=== PATIENT | male | born 1995 | race Hispanic/Latino ===

== ENCOUNTER 2021-09-04 03:47 | Emergency (ER) | payer SELFPAY ==
--- OUTSIDE RECORDS SUMMARY | 2021-09-04 03:50 | XMS REPORT | Continuity of Care Document ---
:1995 Author Organization [facility] t Address [address] [place] [address] Care Team Providers Name Role Phone JOSE MARTINO Attending Clinician Unavailable JOSE MARTINO Admitting Clinician Unavailable Problems This patient has no known problems. Allergies, Adverse Reactions, Alerts This patient has no known allergies or adverse reactions. Medications This patient has no known medications. Procedures This patient has no known procedures. Results Test Description Test Time Test Comments Results Result Comments Source BLOOD CULTURE 2016-12-06 00:00:00 Test Item Value Reference Range Interpretation Comme nts CULTURE (BEAKER) (test code = 1095) No growth in 5 days CBC W/PLT COUNT & AUTO [id number] 11:26:00 Test Item Value Reference Range Interpretation Comments WHITE BLOOD CELL COUNT (BEAKER) 9.4 K/ L 4.0-10.0 (test code = 775) RED BLOOD CELL COUNT (BEAKER) 5.10 M/ L 4.20-5.80 (test code = 761) HEMOGLOBIN (BEAKER) (test code = 15.5 GM/DL 13.0-16.8 410) HEMATOCRIT (BEAKER) (test code = 45.4 % 40.0-50.0 411) MEAN CORPUSCULAR VOLUME (BEAKER) 89.0 fL 82.0-98.0 (test code = 753) MEAN CORPUSCULAR HEMOGLOBIN 30.3 pg 27.0-33.0 (BEAKER) (test code = 751) MEAN CORPUSCULAR HEMOGLOBIN CONC 34.1 GM/DL 32.0-36.0 (BEAKER) (test code = 752) RED CELL DISTRIBUTION WIDTH 12.7 % 10.3-14.2 (BEAKER) (test code = 412) PLATELET COUNT (BEAKER) (test 197 K/CU MM 150-430 code = 756) MEAN PLATELET VOLUME (BEAKER) 8.6 fL 6.5-10.5 (test code = 754) NUCLEATED RED BLOOD CELLS 0 /100 WBC 0-0 (BEAKER) (test code = 413) NEUTROPHILS RELATIVE PERCENT 64 % (BEAKER) (test code = 429) LYMPHOCYTES RELATIVE PERCENT 23 % (BEAKER) (test code = 430) MONOCYTES RELATIVE PERCENT 10 % (BEAKER) (test code = 431) EOSINOPHILS RELATIVE PERCENT 2 % (BEAKER) (test code = 432) BASOPHILS RELATIVE PERCENT 1 % (BEAKER) (test code = 437) NEUTROPHILS ABSOLUTE COUNT 5.98 K/ L 1.80-8.00 (BEAKER) (test code = 670) LYMPHOCYTES ABSOLUTE COUNT 2.19 K/ L 1.48-4.50 (BEAKER) (test code = 414) MONOCYTES ABSOLUTE COUNT (BEAKER) 0.98 K/ L 0.00-1.30 (test code = 415) EOSINOPHILS ABSOLUTE COUNT 0.18 K/ L 0.00-0.50 (BEAKER) (test code = 416) BASOPHILS ABSOLUTE COUNT (BEAKER) 0.06 K/ L 0.00-0.20 (test code = 417) 0.000.800.000.000.000.00(MANUAL DIFFERENTIAL)2016-12-01 11:26:00 Test Item Value Reference Range Interpretation Comments TOTAL COUNTED (BEAKER) (test code = 1351) PLT MORPHOLOGY (BEAKER) (test code = Normal 486) RBC MORPHOLOGY (BEAKER) (test code = Normal 762) ATYPICAL LYMPHS(BEAKER) (test code = Present 1678) [id number] 06:25:00 Test Item Value Reference Range Interpretation Comments PHOSPHORUS (BEAKER) (test code = 3.3 mg/dL 2.3-4.7 604) [id number] 06:25:00 Test Item Value Reference Range Interpretation Comments MAGNESIUM (BEAKER) (test code = 1.9 mg/dL 1.6-2.6 627) COMPREHENSIVE METABOLIC [id number] 06:25:00 Test Item Value Reference Range Interpretation Comments TOTAL PROTEIN 7.5 gm/dL 6.0-8.3 (BEAKER) (test code = 770) ALBUMIN (BEAKER) 3.8 g/dL 3.5-5.0 (test code = 1145) ALKALINE PHOSPHATASE 104 U/L 40-150 (BEAKER) (test code = 346) BILIRUBIN TOTAL 0.7 mg/dL 0.2-1.2 (BEAKER) (test code = 377) SODIUM (BEAKER) (test 139 meq/L 136-145 code = 381) POTASSIUM (BEAKER) 3.9 meq/L 3.5-5.1 (test code = 379) CHLORIDE (BEAKER) 106 meq/L 98-107 (test code = 382) CO2 (BEAKER) (test 21 meq/L 22-29 L code = 355) BLOOD UREA NITROGEN 8 mg/dL 7-21 (BEAKER) (test code = 354) CREATININE (BEAKER) 0.72 mg/dL 0.57-1.25 (test code = 358) GLUCOSE RANDOM 76 mg/dL 70-105 (BEAKER) (test code = 652) CALCIUM (BEAKER) 9.3 mg/dL 8.4-10.2 (test code = 697) AST (SGOT) (BEAKER) 16 U/L 5-34 (test code = 353) ALT (SGPT) (BEAKER) 32 U/L 6-55 (test code = 347) EGFR (BEAKER) (test 137 ESTIMATE D GFR IS code = 1092) mL/min/1.73 sq NOT ACCURA TE m CREATININE CLEARANCE IN PREDICTING GLOMERULAR FILTRATION RATE . ESTIMATED GFR I S NOT APPLICABLE FOR DIALYSIS PATIEN TS. URINALYSIS W/ [id number] 19:58:00 Test Item Value Reference Range Interpretation Comments COLOR (BEAKER) (test code Light Yellow = 470) CLARITY (BEAKER) (test Clear code = 469) SPECIFIC GRAVITY UA 1.015 1.001-1.035 (BEAKER) (test code = 468) PH UA (BEAKER) (test code 7.5 5.0-8.0 = 467) PROTEIN UA (BEAKER) (test Negative Negative code = 464) GLUCOSE UA (BEAKER) (test Negative Negative code = 365) KETONES UA (BEAKER) (test Negative Negative code = 371) BILIRUBIN UA (BEAKER) Negative Negative (test code = 462) BLOOD UA (BEAKER) (test Negative Negative code = 461) NITRITE UA (BEAKER) (test Negative Negative code = 465) LEUKOCYTE ESTERASE UA Negative Negative (BEAKER) (test code = 466) UROBILINOGEN UA (BEAKER) 0.2 mg/dL 0.2-1.0 (test code = 463) RBC UA (BEAKER) (test code < /HPF = 519) WBC UA (BEAKER) (test code 1 /HPF = 520) MUCUS (BEAKER) (test code Rare = 1574) SOURCE(BEAKER) (test code Urine, Clean Catch = 2795)
--- NOTE | 2021-09-04 04:33 | ER ---
Nurse's Notes [facility] Name: Saul Gonsalez Jr Age: 25 yrs Sex: Male : 1995 Arrival Date: 09/04/2021 Time: 03:52 Bed 14 Private MD: Diagnosis: Functional dyspepsia;Chest pain, unspecified Presentation: 09/04 04:17 Chief complaint: Patient states: he ate a late dinner last night watched a movie and bb lay down then started having chest pain denies nausea, SOB. Coronavirus screen: At this time, the client does not indicate any symptoms associated with coronavirus-19. Ebola Screen: No symptoms or risks identified at this time. Initial Sepsis Screen: Does the patient meet any 2 criteria? No. Patient's initial sepsis screen is negative. Does the patient have a suspected source of infection? No. Patient's initial sepsis screen is negative. Risk Assessment: Do you want to hurt yourself or someone else? Patient reports no desire to harm self or others. Onset of symptoms was September 03, 2021. 04:17 Method Of Arrival: Ambulatory bb 04:17 Acuity: KIN 3 bb Triage Assessment: 04:29 General: Appears distressed. Pain: Complains of pain in chest and abdomen. sv1 Cardiovascular: No deficits noted. Historical: - Allergies: 04:19 No Known Allergies; bb - Home Meds: 04:19 None [Active]; bb - PMHx: 04:19 None; bb - PSHx: 04:19 None; bb - Immunization history:: Adult Immunizations up to date, Client reports having NOT received the Covid vaccine. - Social history:: Smoking status: Patient reports the use of cigarette tobacco products, smokes one-half pack cigarettes per day, Patient/guardian denies using alcohol, street drugs. - Family history:: not pertinent. Screenin:32 Abuse screen: none. Nutritional screening: No deficits noted. Tuberculosis screening: sv1 No symptoms or risk factors identified. Fall Risk None identified. Assessment: 04:32 Pain: Pain does not radiate. Pain began suddenly. sv1 04:54 General: Cleared for discharge to home by the provider. The patient understands his sv1 discharge and medication instructions. Dc' via ambulatory.. Vital Signs: 04:17 BP 116 / 71; Pulse 71; Resp 16 S; Temp 98.7(O); Pulse Ox 97% on R/A; Weight 99.79 kg bb (R); Height 5 ft. 6 in. (167.64 cm); Pain 8/10; 04:29 BP 116 / 60; Pulse 94; Resp 17; Temp 98.8; Pulse Ox 97% 0 lpm ; Weight 99.79 kg; Height sv1 5 ft. 6 in. (167.64 cm); 04:29 Body Mass Index 35.51 (99.79 kg, 167.64 cm) sv1 ED Course: 03:52 Patient arrived in ED. 04:14 Olman Lara MD is Attending Physician. viridiana 04:19 Triage completed. bb 04:19 Arm band placed on Patient placed in an exam room, on a stretcher, on pulse oximetry. bb EKG completed in triage. Results shown to MD. 04:21 Jack Mc, RUSSELL is Primary Nurse. sv1 04:32 Mahendra Martinez MD is Referral Physician. viridiana 04:32 Patient has correct armband on for positive identification. Side rails up X 1. Pulse ox sv1 on. 04:32 No provider procedures requiring assistance completed. Patient maintains SpO2 sv1 saturation greater than 95% on room air. 04:33 Chest Single View XRAY In Process Unspecified. EDMS Administered Medications: 04:34 CANCELLED (Other Intervention Used): ProTONIX (pantoprazole) 40 mg IVP once bb 04:43 Drug: GI Cocktail without - (Maalox Suspension 30 ml, Lidocaine Liquid 2 % 15 bb ml) Route: PO; 04:46 Follow up: Response: No adverse reaction; Pain is decreased sv1 04:43 Drug: ProTONIX (pantoprazole) 40 mg Route: PO; bb 04:45 Follow up: Response: No adverse reaction sv1 Outcome: 04:33 Discharge ordered by . viridiana 04:53 Discharged to home sv1 04:53 Condition: improved 04:53 Discharge instructions given to patient, family, Demonstrated understanding of instructions. 04:56 Patient left the ED. sv1 Signatures: Dispatcher [employer] EDMS Olman Lara MD MD cha Ballard, Brenda, RN RN Briana Coombs Villicano, Jack, RN RN sv1
--- NOTE | 2021-09-04 04:34 | EDPHYS ---
Physician Documentation [facility] Name: Saul Gonsalez Jr Age: 25 yrs Sex: Male : 1995 Arrival Date: 09/04/2021 Time: 03:52 Bed 14 Private MD: ED Physician Olman Lara HPI: 09/04 04:28 This 25 yrs old Male presents to ER via Ambulatory with complaints of Chest viridiana Pain > 30 y/o. 04:28 The patient or guardian reports chest pain that is located primarily in the substernal viridiana area. The pain does not radiate. Associated signs and symptoms: Pertinent positives: gerd. The chest pain is described as burning. Severity of pain: At its worst the pain was mild in the emergency department the pain is unchanged. The patient has not experienced similar symptoms in the past. Historical: - Allergies: 04:19 No Known Allergies; bb - Home Meds: 04:19 None [Active]; bb - PMHx: 04:19 None; bb - PSHx: 04:19 None; bb - Immunization history:: Adult Immunizations up to date, Client reports having NOT received the Covid vaccine. - Social history:: Smoking status: Patient reports the use of cigarette tobacco products, smokes one-half pack cigarettes per day, Patient/guardian denies using alcohol, street drugs. - Family history:: not pertinent. ROS: 04:28 Constitutional: Negative for fever, chills, and weight loss, Eyes: Negative for injury, viridiana pain, redness, and discharge, ENT: Negative for injury, pain, and discharge, Neck: Negative for injury, pain, and swelling, Respiratory: Negative for shortness of breath, cough, wheezing, and pleuritic chest pain. 04:28 Back: Negative for injury and pain, : Negative for injury, bleeding, discharge, and swelling, MS/Extremity: Negative for injury and deformity, Skin: Negative for injury, rash, and discoloration, Neuro: Negative for headache, weakness, numbness, tingling, and seizure. 04:28 Cardiovascular: Positive for chest pain, Negative for edema, orthopnea, palpitations. 04:28 Abdomen/GI: Negative for abdominal pain. Exam: 04:28 Constitutional: This is a well developed, well nourished patient who is awake, alert, viridiana and in no acute distress. Head/Face: Normocephalic, atraumatic. Eyes: Pupils equal round and reactive to light, extra-ocular motions intact. Lids and lashes normal. Conjunctiva and sclera are non-icteric and not injected. Cornea within normal limits. Periorbital areas with no swelling, redness, or edema. ENT: Nares patent. No nasal discharge, no septal abnormalities noted. Tympanic membranes are normal and external auditory canals are clear. Oropharynx with no redness, swelling, or masses, exudates, or evidence of obstruction, uvula midline. Mucous membranes moist. Neck: Trachea midline, no thyromegaly or masses palpated, and no cervical lymphadenopathy. Supple, full range of motion without nuchal rigidity, or vertebral point tenderness. No Meningismus. Chest/axilla: Normal chest wall appearance and motion. Nontender with no deformity. No lesions are appreciated. Cardiovascular: Regular rate and rhythm with a normal S1 and S2. No gallops, murmurs, or rubs. Normal PMI, no JVD. No pulse deficits. Respiratory: Lungs have equal breath sounds bilaterally, clear to auscultation and percussion. No rales, rhonchi or wheezes noted. No increased work of breathing, no retractions or nasal flaring. Abdomen/GI: Soft, non-tender, with normal bowel sounds. No distension or tympany. No guarding or rebound. No evidence of tenderness throughout. Back: No spinal tenderness. No costovertebral tenderness. Full range of motion. Male : Normal genitalia with no discharge or lesions. Skin: Warm, dry with normal turgor. Normal color with no rashes, no lesions, and no evidence of cellulitis. MS/ Extremity: Pulses equal, no cyanosis. Neurovascular intact. Full, normal range of motion. Neuro: Awake and alert, GCS 15, oriented to person, place, time, and situation. Cranial nerves II-XII grossly intact. Motor strength 5/5 in all extremities. Sensory grossly intact. Cerebellar exam normal. Normal gait. Psych: Awake, alert, with orientation to person, place and time. Behavior, mood, and affect are within normal limits. 04:28 ECG was reviewed by the Attending Physician. Vital Signs: 04:17 BP 116 / 71; Pulse 71; Resp 16 S; Temp 98.7(O); Pulse Ox 97% on R/A; Weight 99.79 kg bb (R); Height 5 ft. 6 in. (167.64 cm); Pain 8/10; 04:29 BP 116 / 60; Pulse 94; Resp 17; Temp 98.8; Pulse Ox 97% 0 lpm ; Weight 99.79 kg; Height sv1 5 ft. 6 in. (167.64 cm); 04:29 Body Mass Index 35.51 (99.79 kg, 167.64 cm) sv1 MDM: 04:14 Patient medically screened. viridiana 04:31 Differential diagnosis: abnormal EKG, coronary artery disease chest wall pain, viridiana Cholelithiasis costochondritis, esophagitis, gastritis, hiatal hernia, pleurisy, stable angina. HEART Score: History: Slightly Suspicious (0), ECG: Normal (0), Age: < or = 45 years (0), Risk Factors: No Risk Factors Known (0), Total Score = 0. The patient's deep vein thrombosis risk score was calculated as follows: Total Score: 0. This patient was found to be at low risk for a deep vein thrombosis by using the Well's assessment criteria. The patient's pulmonary embolism risk score was calculated as follows: Total Score: 0-2 points. This patient was found to be at low risk for a pulmonary embolism by using the Well's assessment criteria. KAREY Risk Score: TOTAL SCORE = 0. Data reviewed: vital signs, nurses notes, EKG, radiologic studies, plain films. Data interpreted: hall monitor: rate is 71 beats/min, rhythm is regular, Arterial blood gas: is normal except: 97. Test interpretation: by ED physician or midlevel provider: ECG, plain radiologic studies. 09/04 04:22 Order name: Chest Single View XRAY [facility] 09/04 04:22 Order name: EKG; Complete Time: 04:23 [facility] 09/04 04:22 Order name: EKG - Nurse/Tech; Complete Time: :35 [facility] EC:28 Rate is 95 beats/min. Rhythm is regular. QRS [place] is Normal. [place] interval is normal. QRS [place] interval is normal. QT interval is normal. No Q waves. T waves are Normal. No ST changes noted. Clinical impression: Normal ECG and No evidence of ischemia. Interpreted by me. Reviewed by me. Administered Medications: 04:34 CANCELLED (Other Intervention Used): ProTONIX (pantoprazole) 40 mg IVP once bb 04:43 Drug: GI Cocktail without - (Maalox Suspension 30 ml, Lidocaine Liquid 2 % 15 bb ml) Route: PO; 04:46 Follow up: Response: No adverse reaction; Pain is decreased sv1 04:43 Drug: ProTONIX (pantoprazole) 40 mg Route: PO; bb 04:45 Follow up: Response: No adverse reaction sv1 Disposition Summary: 09/04/21 04:33 Discharge Ordered Location: Home [facility] Problem: new [facility] Symptoms: have improved viridiana Condition: Stable viridiana Diagnosis - Functional dyspepsia viridiana - Chest pain, unspecified viridiana Followup: viridiana - With: Private Physician - When: 2 - 3 days - Reason: Recheck today's complaints, Continuance of care, Re-evaluation by your physician Followup: viridiana - With: Mahendra Martinez MD - When: 2 - 3 days - Reason: Recheck today's complaints, Re-evaluation by your physician Discharge Instructions: - Discharge Summary Sheet viridiana - Nonspecific Chest Pain, Adult viridiana - Indigestion viridiana - Nonspecific Chest Pain, Adult, [id number] viridiana - Indigestion, [id number] [facility] Forms: - Medication Reconciliation Form [facility] - Thank You Letter [facility] - Antibiotic Education [facility] - Prescription Opioid Use [facility] Prescriptions: - ondansetron 4 mg Oral tablet,disintegrating - place 1 tablet by TRANSLINGUAL route every 6-8 hours; 20 tablet; Refills: 0, [facility] Product Selection Permitted - Protonix 40 mg Oral Tablet - take 1 tablet by ORAL route once daily; 30 tablet; Refills: 0, Product [facility] Selection Permitted Signatures: Dispatcher [employer] Olman Hathaway MD MD cha Ballard, Brenda, RN RN bb Jack Mc RN sv1 Corrections: (The following items were deleted from the chart) 04:34 04:28 ProTONIX (pantoprazole) 40 mg IVP once ordered. viridiana poncho
[2021-09-04] MEDS ORDERED: MAGNES/ALUMIN/SIMET 30ML UCUP ONE (04:36)
[2021-09-04] MEDS ORDERED: PANTOPRAZOLE 40MG TABLET PO ONE (04:36)
[2021-09-04] MEDS ORDERED: LIDOCAINE VISCOUS 2% SOLN 15 ML UDC ONE (04:37)
[2021-09-04 05:05] VITALS: O2SAT 97
[2021-09-04 05:07] VITALS: BP 116/60; TEMP 98.8
--- NOTE | 2021-09-04 09:23 | RAD REPORT ---
EXAM DESCRIPTION: RAD - Chest Single View - 09/04/2021 4:33 am CLINICAL HISTORY: ABDOMINAL DISTENTION COMPARISON: March 2014 TECHNIQUE: AP portable chest image was obtained 09/04/2021 4:33 am . FINDINGS: Lungs are clear. Heart and vasculature are normal. No measurable pleural effusion and no p neumothorax. No acute bony abnormality seen. No acute aortic findings suspected. No significant betts e from comparison. IMPRESSION: No acute cardiopulmonary process.
--- NOTE | 2021-09-04 12:26 | EKG ---
Test Date: 2021-09-04 Test Time: 04:08:42 Patent Litigation Associate: LUIZ MEASUREMENT RESULTS: Intervals: Rate: 95 MI: 162 QRSD: 96 QT: 338 QTc: 424 [place]: P: 52 MI: 162 QRS: 24 T: 39 INTERPRETIVE STATEMENTS: Normal sinus rhythm Normal ECG No previous ECG available for comparison Electronically Signed On 09-04-21 12:25:40 [employer] by Reji Watson
== END 2021-09-04 04:56 | disposition home or self-care (01) ==
LOC: ER 03:47
DX: K30 Functional dyspepsia (principal); F17.210 Nicotine dependence, cigarettes, uncomplicated
CPT/HCPCS: 71045; 93005; 99284